=== PATIENT | male | born 1995 | race Caucasian/White ===

== ENCOUNTER 2017-01-26 07:06 | Emergency (ER) | payer BC, OTHER ==
[~2017-01-26] VITALS: Ht 177.8 cm; Wt 66.0 kg
[~2017-01-26 07:06] MED LIST: [UNRECOGNIZED DRUG - CODE] PO
[2017-01-26 07:10] VITALS: BP 142/81; PULSE 102; RESP 15; TEMP 99.2; O2SAT 99
[2017-01-26] MEDS ORDERED: LIDOCAINE HCL 1% 50 ML VIAL INFIL ONE (07:30)
[2017-01-26] MEDS ORDERED: CEPH-460 PO (07:50)
--- NOTE | 2017-01-26 07:50 | PD ---
HPI Chief Complaint: Laceration/Skin Injury Time Seen by Provider: 07:13 Travel History International Travel<30 days: No Contact w/Intl Traveler<30days: No Traveled to known affect area: No History of Present Illness HPI 21-year-old male complains of left big toe laceration. Patient states that he lacerated left big toe this morning. Patient denies any other injury. Patient' s up-to-date with TD booster. PFSH Past Medical History Immunizations Current: Yes Social History Alcohol Use: No Tobacco Use: No Substance Use: No Allergies-Medications (Allergen,Severity, Reaction): Coded Allergies: No Known Allergies (Unverified , 01/26/17) Reported Meds & Prescriptions Reported Meds & Active Scripts Active No Active Prescriptions or Reported Medications Review of Systems General / Constitutional: No: Fever Eyes: No: Visual changes HENT: No: Headaches Cardiovascular: No: Chest Pain or Discomfort Respiratory: No: Shortness of Breath Gastrointestinal: No: Abdominal Pain Genitourinary: No: Dysuria Musculoskeletal: No: Pain Skin: No Rash Neurologic: No: Weakness Psychiatric: No: Depression Endocrine: No: Polydipsia Hematologic/Lymphatic: No: Easy Bruising Physical Exam Narrative GENERAL: Well-nourished, well-developed patient. SKIN: Focused skin assessment warm/dry. HEAD: Normocephalic. EYES: No scleral icterus. No injection or drainage. NECK: Supple, trachea midline. No JVD or lymphadenopathy. CARDIOVASCULAR: Regular rate and rhythm without murmurs, gallops, or rubs. RESPIRATORY: Breath sounds equal bilaterally. No accessory muscle use. GASTROINTESTINAL: Abdomen soft, non-tender, nondistended. MUSCULOSKELETAL: No cyanosis, or edema. BACK: Nontender without obvious deformity. No CVA tenderness. Patient had 3 cm laceration dorsal aspect left big toe. Minor bleeding noted. No ligament tendon joint involvement. Data Data Last Documented VS Vital Signs Date Time Temp Pulse Resp B/P Pulse Ox O2 Delivery O2 Flow Rate FiO2 01/26/17 07:10 99.2 102 15 142/81 99 Orders Lidocaine 1% Inj (50 Ml) (Xylocaine 1% I (01/26/17 07:30) MDM Medical Decision Making Medical Screen Exam Complete: Yes Emergency Medical Condition: Yes Differential Diagnosis Differential diagnosis including skin laceration, ligament tendon joint involvement. Narrative Course 21-year-old male with left big toe laceration. Diagnosis Primary Impression: Laceration of toe of left foot Qualified Code: S91.112A - Laceration of left great toe without foreign body present or damage to nail, initial encounter Patient Instructions: General Instructions Additional Instructions: Wound care daily. Keflex as directed. Follow-up with personal physician and return in 10 days for suture removal. Med/Other Pt SpecificInfo: Prescription(s) given Scripts Cephalexin (Keflex)500 Mg Fkogiox015 Mg PO TID #15 CAP Ref 0 Prov:Feliciano Cohn MD 01/26/17 Disposition: 01 DISCHARGE HOME Condition: Stable Feliciano Cohn MD Jan 26, 2017 07:50
== END 2017-01-26 07:57 | disposition home or self-care (01) ==
LOC: PHED 07:06
DX: S91.112A Laceration without foreign body of left great toe without damage to nail, initial encounter (principal); X58.XXXA Exposure to other specified factors, initial encounter

== ENCOUNTER 2017-10-27 01:22 | Emergency (ER) | payer BC, OTHER ==
[~2017-10-27] VITALS: Ht 172.7 cm; Wt 67.5 kg
[~2017-10-27 01:22] MED LIST changes: +CEPH-460 PO; -[UNRECOGNIZED DRUG - CODE] PO
[2017-10-27 01:27] VITALS: BP 144/89; PULSE 146; RESP 16; TEMP 99.6; O2SAT 96
[2017-10-27] MEDS ORDERED: LIDOCAINE HCL 1% PF 30 ML VIAL INFIL ONE (02:15)
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
--- NOTE | 2017-10-27 03:14 | PD ---
Physical Exam Date Seen by Provider: October 27, 2017 Time Seen by Provider: 03:12 Narrative For full history and physical examination please see previous note. Data Data Last Documented VS Vital Signs Date Time Temp Pulse Resp B/P (MAP) Pulse Ox O2 Delivery O2 Flow Rate FiO2 10/27/17 01:27 99.6 146 16 144/89 (107) [address] Brain W/O Iv Contrast(Rout) (10/27/17 ) Lidocaine Pf 1% Inj (Xylocaine-Mpf 1% In (10/27/17 02:15) MDM Medical Record Reviewed: Yes Supervised Visit with KEESHA: Yes Procedures Procedure Narrative LACERATION LOCATION: Outer lower lip LENGTH: 1 cm NUMBER OF STITCHES/NITHIN: 3 stitches REPAIR: The area of the laceration was prepped with Betadine and sterilely draped. The laceration was infiltrated with 1% lidocaine. The wound was copiously irrigated and explored without evidence of foreign body, tendon injury or neurovascular injury. The wound was closed using 5-0 Prolene this was a 1 layer repair. A sterile dressing was applied. The patient was advised to keep the dressing clean and dry. Patient tolerated the procedure well. LACERATION LOCATION: Inner lower lip LENGTH: 1 1/2 cm NUMBER OF STITCHES/NITHIN: 2 stitches REPAIR: The area of the laceration was prepped with Betadine and sterilely draped. The laceration was infiltrated with 1% lidocaine. The wound was copiously irrigated and explored without evidence of foreign body, tendon injury or neurovascular injury. The wound was closed using 5-0 Vicryl. This was a 1 layer repair. A sterile dressing was applied. The patient was advised to keep the dressing clean and dry. Patient tolerated the procedure well. Marcella León October 27, 2017 03:13
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
== END 2017-10-27 05:33 | disposition home or self-care (01) ==
LOC: NEPC 01:22
DX: S01.511A Laceration without foreign body of lip, initial encounter (principal); Y04.0XXA Assault by unarmed brawl or fight, initial encounter
CPT/HCPCS: 12011; 70450